=== PATIENT | female | born 1960 | race Caucasian/White ===

== ENCOUNTER → 2016-09-26 | Outpatient (CLI) | payer BC ==
[~2016-09-26] MED LIST: ADDERALL5 MG PO; ADVAIR 5001 DISK W/D PO; ALBUTEROL17 GM INH; ALLERGY INJECTIONS SUBQ; AMLODIPINE BES2.5 MG PO; ATENOLOL PO; ATIVAN0.5 MG PO; COLACE PO; COUMADIN; COUMADIN5 MG PO; COUMADIN7.5 MG PO; DULOXETINE HCL60 M1 PO; DYAZIDE 37.5/251 CAP; FLAGYL; FLAGYL PO; FLONASE 0.05% N16 G1; FLUOXETINE HCL20 M1 PO; FLUOXETINE HCL60 MG PO; GABAPENTIN300 MG PO; GABAPENTIN600 MG PO; KCL PO; LASIX PO; LASIX20 MG PO; LEVAQUIN PO; LEVOTHYROXINE100 MCG PO; LOVENOX SUBQ; MONTELUKAST SOD10 MG PO; NASONEX; NASONEX17 GM; PERCOCET 5/321 UDTAB PO; PHENERGAN12.5 MG PO; PRILOSEC; PRILOSEC PO; PROAIR; PROAIR HFA8.5 GM IN; PROAIR HFA8.5 GM INH; PROZAC; SYMBICORT 160/4.6 G1 INH; SYNTHROID PO; TENORMIN50 MG PO; TYLENOL #3 PO; VIT B-12 PO; VOLTAREN75 MG PO; XARELTO20 MG PO
--- NOTE | ~2016-09-26 | MY11 ---
[facility] of [facility] RADIOLOGY TEXT RESULTS PATIENT: HANNAH VANCE LOCATION: [facility] : 60 UNIT #: [id number] AGE: [address]: Samanta Cantor MD SEX: F ORDER DR: [id number] [facility]. [place], [place] [address] [id number] O MR#: [id number] Acc #: [id number] NAME: HANNAH VANCE : 1960 SEX: F STUDY DATE/TIME: 09/26/2016 8:37 UNIT: [facility] ROOM: STUDY DESCRIPTION: MY Mammogram Screening Dig Estuardo Attending Physician: Samanta Cantor M.D. Ordering Physician: Samanta Cantor M.D. Primary Care Physician: Samanta Cantor M.D. MEDICAL IMAGING REPORT This report is preliminary unless electronic signature is present EXAM Bilateral digital screening mammogram with CAD INDICATION Breast cancer screening. 56-year-old asymptomatic female. No personal or family history of breast cancer. COMPARISONS September 15, 2015, July 26, 2014, May 24, 2013, May 07, 2012, May 02, 2011, April 30, 2010, and February 26, 2010. FINDINGS There are scattered fibroglandular tissues. No suspicious findings are present. IMPRESSION No mammographic evidence of malignancy. Annual screening mammography and clinical breast exam are recommended. A result letter will be sent to the patient. Patients over the age of 40 are entered into a reminder system with target due date for the next mammogram. BIRADS: 1 Negative Dictated by... Dimitrios Newberry M.D. THIS IS AN ELECTRONICALLY VERIFIED REPORT Dimitrios Newberry M.D. at 09/30/2016 5:[address] [facility] Service [facility] RADIOLOGY TEXT RESULTS PATIENT: HANNAH VANCE LOCATION: [facility] : 60 UNIT #: [id number] AGE: [address]: Samanta Cantor MD SEX: F ORDER DR: TD: 09/26/2016 11:16 JOB #: [id number] MEDICAL IMAGING REPORT Page 1 of 1 COPY
== END | disposition home or self-care (01) ==
LOC: CWCC 08:14
DX: Z12.31 Encounter for screening mammogram for malignant neoplasm of breast (principal)
CPT/HCPCS: G0202